=== PATIENT | female | born 1980 | race Caucasian/White ===

== ENCOUNTER 2025-02-14 18:50 | Emergency (ER) | payer MEDICAID, SELFPAY ==
--- OUTSIDE RECORDS SUMMARY | 2021-06-09 06:22 | XMS_ITS | Continuity of Care Document ---
Author Organization [facility] Address [address] [address] [place] [address] Phone Care Team Providers Care Ict Customer Support Officer Name Role Phone Kristina Lr MD Unavailable Unavailable Allergies, Adverse Reactions, Alerts Substance Reaction Status Criticality Sulfa (Sulfonamide Antibiotics) hives Active No Information Penicillins unknown Active No Information WARNIN allergy(ies) could not be collected because the type is not supported. Please contact the source practice for further details. Medications Medication Instructions Dosage Effective Dates (start - stop) Status Comments Fatmata 180 mg tablet take 1 tablet by o ral route every day - Active Procedures Procedure Date Offic/outpt E&m Estab Mod-hi 2 17 Routine Serum Collection Basic Metabolic Panel Bld Ct; Hg & Platelet Ct Autom 17 Gg; Iga, Igd, Igg, Igm, Ea Colonoscopy Flex; Dx (sep Pro) 14 Advance Directives Directive Yes / No Effective Date File Name No Information Encounters Encounter Description Practice Location Reason(s) For Visit Diagnoses Date Provider Providers Copied on Encounter [facility], [address] [address], [place], [id number], [place] tel:[phone] [facility] No Information 1 Be Acevedo. [address] [facility], [facility] [address], [place], [id number] , [place]. tel:[phone] Offic/outpt E&m Estab Mod-hi 2 [facility], [address] [address], [place], [id number], [place] tel:[phone] [facility] GI Symptoms or Concerns (chief complaint) Constipation, unspecified constipation typeLower abdominal painDietary counseling and surveillance Be Acevedo. [address] [facility], [facility] [address], [place], [place], [id number] , [place]. [phone] Referring Provider: Referral Self, USE FOR SELF REFERRALS. [facility], [address] [address], [place], [place], [id number], [place] tel:[phone] [facility] Internal hemorrhoidsRectal Bleed/BRBPRChange In Bowel HabitsInternal Hemorrhoids Be Acevedo. [address] [facility], [facility] [address], [place], [place], [id number] , [place]. [phone] Referring Provider: Jason Guerrero MD [place], [address] [place] [address] [place], [address]. tel:[phone] Family History Family Member Type Diagnosis Age At Onset Half sister (M) Problem (finding) Alive and well Mother Problem (finding) diverticulitis of colon Father Problem (finding) Alive and well Sister Problem (finding) Alive and well Payers Payer name Insurance type Covered libertarian ID Authoriza tion(s) No Information Social History Type Description Quantity Date Captured Comments Alcohol Use Details Unknown Caffeine Use Details Unknown Tobacco Use Status No Information Smoking Status No Information Sex Female Chief Complaint And Reason For Visit No Information Reason For Referral Reason For Referral No Information Plan Of Treatment Date Type Action Status Goal Lifestyle education regardin g diet completed Referral Ordered: CT Abdomen And Pelvis WITHOUT And WITH Contrast Appointment date/timeframe: -today ordered History Of Present Illness Encounter Date Complaint History Of Prese nt Illness GI Symptoms or Concerns The cherelle ent is a 36-year-old female who presents with constipation indicating she has not had a bowel movement for 11 to 12 days.She insists 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 She says it was ordered by Congress or by the President. She says it was placed without her consent. She says it was placed while she was in [place]. She has since moved back to [place]. When I do try to focus her on clinical symptoms, she reports that she has not had a bowel movement in 12 days. Previously, she reports daily bowel movements. She denies nausea or vomiting. She has lower abdominal pressure and discomfort. She is passing gas from below. She does have a history of intermittent rectal bleeding and underwent a colonoscopy with us in 2013 for evaluation of this. This revealed internal hemorrhoids and was otherwise normal. Recommendation at that time was made for repeat colonoscopy at age 48. Recommendation was additionally made for fiber with gradual increase Functional Status Date Functional Assessmen t No Information Instructions Date Instruction Additional Infor justus 1. cbc, bmp, tsh, ce liac2. CT a/p as per patient request3. try miralax 1-2 capfuls daily - if no relief proceed with bowel cleanse followed by miralax 1 capful daily4. establish care with pcp Related to Lower abdominal pain Constipation Bowel Cleanse (Adul t) Related to Lower abdominal pain Lifestyle education regarding di et Related to Dietary counseling and surveillance Hemorrhoids Related to Inter nal hemorrhoids High Fiber Diet Related to Inter nal hemorrhoids Assessments Type Assessment Date No Information Patient Care Teams Name Effective Dates (start - stop) Status Members No Information
--- OUTSIDE RECORDS SUMMARY | 2022-03-17 07:23 | XMS_ITS | Continuity of Care Document ---
Author Organization [facility] Address [address] [place], [place] Phone Care Team Providers Care Conveyor Belt Repairer Name Role Phone VENKATA BYNUM PA-C Unavailable Unavaila ble Allergies, Adverse Reactions, Alerts Substance Reaction Status Criticality No Known Allergies Active No Inform ation Medications Medication Instructions Dosage Effective Dates (start - stop) Status Comments doxycycline hyclate 100 mg capsule take 1 capsule by oral route every day 100 MG - Active Procedures Procedure Date ESTABLISHED PATIENT OFFICE VISIT - LEVEL 2 ESTABLISHED PATIENT OFFICE VISIT - LEVEL 2 NEW PATIENT OFFICE VISIT- LEVEL 3 NEW PATIENT OFFICE VISIT- LEVEL 3 REMOVAL OF NAIL PLATE Advance Directives Directive Yes / No Effective Date File Name No Information Encounters Encounter Description Practice Location Reason(s) For Visit Diagnoses Date Provider Providers Copied on Encounter [facility], [address], [place], [place], , [place] tel:[phone] [facility] No Information 2 MISA EDWIN. [address] [facility], [address], [place], [place], [id number], [place]. tel:[phone] ESTABLISHED PATIENT OFFICE VISIT - LEVEL 2 [facility], [address], [place], [place], , [place] tel:[phone] [facility] left foot pain (chief complaint) Paronychia of toe of left foot 2 5 No Information NEW PATIENT OFFICE VISIT- LEVEL 3 [facility], [address], [place], [place], , [place] tel:[phone] [facility] left foot pain (chief complaint) min Noble 5-201 5 No Information Family History Family Member Type Diagnosis Age At Onset No Information Payers Payer name Insurance type Covered republican ID Authoriza tiximena(s) No Information Social History Type Description Quantity Date Captured Comments Sex Female Smoking Status No Information Chief Complaint And Reason For Visit No Information Reason For Referral Reason For Referral No Information History Of Present Illness Encounter Date Complaint History Of Prese nt Illness left foot pain Ms Pro is a 35 year old female who complains of left foot pain. She presents with pain on the left side. The symptoms occur with mild activity. She rates her current pain as 2/10. The symptoms are aggravated by ascending stairs and daily activities. Sharri states that the symptoms are relieved by rest. She denies having any associated symptoms. Pertinent negatives include fever. left foot pain Ms Pro is a 35 year old female who complains of left foot pain. She presents with pain on the left side. She states that the symptoms have been acute non-traumatic and began 6 months ago. Currently the patient states that the symptoms are mild-moderate. She rates her current pain as 7/10. The symptoms are aggravated by daily activities. Sharri states that the symptoms are relieved by rest. In addition to left foot pain the patient is also experiencing difficulty going to sleep, difficulty with shoes and socks, limping, pain in bed, pain and nighttime awakening. Pertinent negatives include loss of motion. Functional Status Date Functional Assessmen t No Information Instructions Date Instruction Additional Infor mation No Information Assessments Type Assessment Date No Information Patient Care Teams Name Effective Dates (start - stop) Status Members No Information
[2025-02-14 19:02] VITALS: BP 113/78; PULSE 80; RESP 18; TEMP 37.2; O2SAT 98; BMI 36.6
--- NOTE | 2025-02-14 19:18 | ED.NURSE ---
Patient is refusing to answer safety questions in triage, she states she will address this with MD.
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
--- OUTSIDE RECORDS SUMMARY | 2025-02-14 20:18 | XMS_ITS | Clinical Summary ---
Author Organization [facility] Address [address] [place] [address] Care Team Providers Care Bone Char Kiln Tender Name Role Phone Kashif Henley MD Primary Care Provider + Linda Young MD Unavailable [phone] Allergies Active Allergy Reactions Criticality Noted Date Comments Alcohol Anaphylaxis High 08/08/2008 Pt is allergic to sulfates in alcohol such as wine Sodium Hypochlorite Solution Nausea Only High 10/25/2018 Bleach containing products/ 24 hour reaction/ gets lightheaded and nauseous Leaf Derived Cough Unknown 12/05/2014 Clozapine Blood Dyscrasia High 09/15/2023 Pt states that she had a blood reaction Fish Containing Products Anaphylaxis High 04/15/2015 Unlisted Allergen (Include Detail In Comments) Anaphylaxis High 08/08/2008 Seafood , pea and ETOH Peas Grains Fruits Vegetables Shellfish Containing Products Anaphylaxis High 08/08/2008 Sulfa (Sulfonamide Antibiotics) Hives Unknown 04/02/2013 Medications multivitamin (MVI) tablet Take 1 Tablet by mouth once daily. 09/27/2023 Active docusate (Colace) 100 mg capsuleIndicati ons:Constipatio n, acute Take 1 Capsule (100 mg) by mouth 2 times daily if needed for Constipation . 60 Capsule 2 11/03/2023 Active Active Problems Problem Noted Date Diagnosed Date Delusional disorder 04/16/2024 Schizophrenia, paranoid 08/19/2022 Overview (01/07/2025): With bizarre fixed delusions With bizarre fixed delusions Uterine fibroid 03/03/2016 Overview (09/27/2023): 03/02/16 - In the left uterine body, there is an intramural fibroid measuring 1.0 cm. Resolved Problems Problem Noted Date Diagnosed Date Resolved Date Delusions 01/18/2017 01/18/2017 Ocular migraine 07/01/2014 09/27/2023 Erythema nodosum 11/02/2011 04/16/2024 Chest pain, unspecified 01/04/200809/05 Pain in joint, forearm 01/04/200809/27 Allergic rhinitis, cause unspecified 01/30/2007 04/16/2024 Other malaise and fatigue 01/30/2007 Encounters Date Type Department Care Team Description 01/09/2025 2:30 PM CDT Ancillary Procedure [place] [address] [place] [address] 01/09/2025 Telephone [facility] [address] [facility] [address] [place] [address] Lenore Polanco CURLING MACHINE OPERATOR Results 01/09/2025 Travel 01/09/2025 Telephone [facility] [address] [place] [address] Lenore Polanco NP Results (Labs 01/07/25) 01/07/2025 2:20 PM CDT Office Visit [facility] [address] [place] [address] Lenore Polanco NP Concerns (Left side pain - felt like an organ burst, happened 5 nights ago/painful this morning); Health Maintenance Update (Reviewed Care Gaps/declined/) 01/07/2025 Travel 12/09/2024 Telephone [facility] [address] [facility] [address] [place] [address] Pcp, No Appointment Request 12/09/2024 Nurse Triage [facility] [address] [place] [address] Kashif Henley MD Hearing Problem 12/02/2024 2:15 PM CDT Office Visit [facility] [address] [place] [address] Mark Plunkett, OD Eye Exam (Prev comp exam ) 12/02/2024 Travel from Last 3 Months Immunizations Immunization Administration Dates Next Due Hepatitis A (Peds) 05/04/1997 Hepatitis A, Unspecified 03/27/1996 Hepatitis B, Unspecified 01/25/1994,08/24/1993,1 09/21/1992 MMR 07/22/1993 Oral Polio Vaccine 07/22/1993 Td (Age >=7 Years) 07/22/1993 Tdap 08/21/2014 Typhoid (injectable) 02/26/1999 Yellow Fever 02/26/1999 Family History * Patient is adopted Medical History Relation Name Comments Depression Father Psychiatric illness Father Schizoph augusta Other Mother TBI Relation Name Status Comments Father Mother Social History Tobacco Use Types Packs/Day Years Used Date Smoking Tobacco: Never Smokeless Tobacco: Never Tobacco Cessation:Counseling Given: No Comments:second hand smoke Alcohol Use Standard Drinks/Week Comments No 0 (1 standard drink = 0.6 oz pur e alcohol) allergy PHQ-2 Answer Date Recorded PHQ-2 TOTAL SCORE 0 07/01/2024 Social Connections Answer Date Recorded Do you often feel lonely or isolated from those around you? 0 09/27/2023 Financial Resource Strain Answer Date R ecorded Difficulty of Paying Living Expenses 3 09/27/2023 Difficulty of Paying Living Expenses Not on file 09/27/2023 Food Insecurity Answer Date Recorded Do you worry your food will run out before you are able to buy more? 1 09/27/2023 Transportation Needs Answer Date Record ed Does lack of transportation keep you from medica l appointments? 1 09/27/2023 Does lack of transportation keep you from work, meetings or getting things that you need? 1 09/27/2023 Housing Stability Answer Date Recorded What is your housing situation today? 1 09/27/2023 Interpersonal Safety Answer Date Record ed Are you being hit, kicked, p ushed or yelled at (see row info)? No 04/18/2024 Interpersonal Safety Abuse 12 - 18 Not on file 04/18/2024 Interpersonal Safety Ambulatory Vulnerability No t on file 04/18/2024 Utilities Answer Date Recorded Do you have trouble paying f or utilities (for example, heat, electricity, water, phone)? 1 09/27/2023 Comments No Sex and Gender Information Value Date Recorded Sex Assigned at Female 11/02/2023 2:06 PM RN LPN LVN Legal Sex Female 7:22 AM RN LPN LVN Gender Identity Female 11/02/2023 2:06 PM RN LPN LVN Sexual Orientation Straight 11/02/2023 2: 06 PM RN LPN LVN Obstetrics History Para Term AB IAB SAB Ectopic Multiple Livin g Live Births 0 0 0 0 0 0 0 0 0 0 Last Filed Vital Signs Vital Sign Reading Time Taken Comments Blood Pressure 125/72 04/18/2024 10:14 PM CDT Pulse 84 01/07/2025 2:49 PM CDT Temperature 37.4 C (99.4 F) 01/07/2025 2:49 PM CDT Respiratory Rate 18 04/18/2024 10:1 4 PM CDT Oxygen Saturation 99% 01/07/2025 2:4 9 PM CDT Inhaled Oxygen Concentration - - Weight 97.8 kg (215 lb 11.2 oz) 025 2:49 PM CDT with shoes Height 162.6 cm (5' 4) 04/18/2024 10:1 4 PM CDT Body Mass Index 37.02 04/18/2024 10:14 PM CDT Plan of Treatment Health Maintenance Due Date Last Done Comments Lipids for age 45-75 2023 Mammogram for age 45-75 2023 Pap test for age 21-65 01/03/2024 9, 01/02/2019, 02/11/2014, Additional history exists COVID-19 vaccine series ( season) 2024 08/24/2023, 09/09/2021, 02/12/2021, Additional history exists Tetanus booster 08/21/2024 08/21/2014, 04/2011 (Declined), 07/22/1993 BMI (ht and wt on same day) for age 18+ 09/27/2024 09/27/2023, 09/15/2023, 10/05/2018, Additional history exists Influenza Vaccine (Season Ended) 2025 Depression screening for age 12+ 07/01/2025 07/01/2024 Colonoscopy through age 75 09/08/2033 09/08/2023, Hepatitis B series for 19+ Completed 01/25, 08/24/1993, 07/22/1993 Tdap Completed 08/21/2014 HIV for age 15-65 Completed 01/07/2025, , 01/02/2019 Hepatitis C screening for age 18-79 Completed 01/07/2025, 01/02/2019 Pneumococcal series for age 6-49 Aged Out No longer eligible based on patient's age to complete this topic Procedures Procedure Name Priority Date/Time Associated Diagnosis Comments CT ABDOMEN PELVIS W [place] 01/09/2025 3 :27 PM CDT Abdominal pain, LLQ (left lower quadrant) GC CHLAMYDIA TRACH PROBE Routine 01/07/2025 3:50 PM CDT Screening examination for STD (sexually transmitted disease) TREPONEMA PALLIDUM Routine 01/07/2025 3: 38 PM CDT Screening examination for STD (sexually transmitted disease) ANTI HIV 1/2 Routine 01/07/2025 3:28 PM CDT Screening examination for STD (sexually transmitted disease) HBSAG (HBS) Routine 01/07/2025 3:28 PM CDT Screening examination for STD (sexually transmitted disease) ANTI HCV Routine 01/07/2025 3:28 PM CDT Screening examination for STD (sexually transmitted disease) [place] BLOOD COUNT COMPLETE AUTO&AUTO DIFRNTL WBC Routine 01/07/2025 3:28 PM CDT Abdominal pain, LLQ (left lower quadrant) Screening examination for STD (sexually transmitted disease) COMP METABOLIC PANEL Routine 01/07/2025 3:28 PM CDT Abdominal pain, LLQ (left lower quadrant) SCAN-COLONOSCOPY 09/08/2023 12:0 0 AM RN LPN LVN COLLECTION ANALYST THIN PREP PAP SCREEN IMAGED Routine 01/02/2019 8:45 AM CDT Screening for cervical cancer from Last 3 Months or Most Recently Relevant to Health Maintenance Results * CT ABDOMEN PELVIS W (01/09/2025 3:27 PM CDT) Anatomical Region Laterality Modality Abdomen, Pelvis, AORTA, LIVER, SPLEEN Computed Tomography 01/09/2025 3:27 PM CDT Impressions 01/09/2025 3:33 PM CDT 1. Low-density left ovarian/adnexal lesion measuring up to 3.2 cm, possible symptomatic ovarian lesion/cyst. Recommend pelvic ultrasound for further evaluation. Suggested follow-up: US Pelvis < 1 Month Narrative 01/09/2025 3:33 PM CDT For Patients: As a result of the Cures Act, medical imaging exams and procedure reports are released immediately into your electronic medical record. You may view this report before your referring provider. If you have questions, please contact your health care provider. EXAM: CT ABDOMEN PELVIS W LOCATION: [facility] DATE: 01/09/2025 INDICATION: Abdominal Pain, Llq (left Lower Quadrant) COMPARISON: CT 01/17/2017. TECHNIQUE: CT scan of the abdomen and pelvis was performed following injection of IV contrast. Multiplanar reformats were obtained. Dose reduction techniques were used. CONTRAST: Omnipaque 350 80ml FINDINGS: LOWER CHEST: Normal. HEPATOBILIARY: Normal. PANCREAS: Normal. SPLEEN: Normal. ADRENAL GLANDS: Normal. KIDNEYS/BLADDER: Normal. BOWEL: No obstruction or inflammatory change. LYMPH NODES: Normal. VASCULATURE: Normal. PELVIC ORGANS: Low-density left ovarian/adnexal lesion measures 3.2 x 2.7 cm (series 2, image 111). MUSCULOSKELETAL: Small fat-containing umbilical hernia. Procedure Note Delmar Gr MD - 01/09/2025 For Patients: As a result of the s Act, medical imagingexams and procedure reports are released immediately into your electronicmedical record. You may view this report before your referring provider.If you have questions, please contact your health care provider. EXAM: CT ABDOMEN PELVIS W LOCATION: [facility] DATE: 01/09/2025 INDICATION: Abdominal Pain, Llq (left Lower Quadrant) COMPARISON: CT 01/17/2017. TECHNIQUE: CT scan of the abdomen and pelvis was performed followinginjection of IV contrast. Multiplanar reformats were obtained. Dosereduction techniques were used. CONTRAST: Omnipaque 350 80ml FINDINGS: LOWER CHEST: Normal. HEPATOBILIARY: Normal. PANCREAS: Normal. SPLEEN: Normal. ADRENAL GLANDS: Normal. KIDNEYS/BLADDER: Normal. BOWEL: No obstruction or inflammatory change. LYMPH NODES: Normal. VASCULATURE: Normal. PELVIC ORGANS: Low-density left ovarian/adnexal lesion measures 3.2 x 2.7cm (series 2, image 111). MUSCULOSKELETAL: Small fat-containing umbilical hernia. IMPRESSION: 1. Low-density left ovarian/adnexal lesion measuring up to 3.2 cm,possible symptomatic ovarian lesion/cyst. Recommend pelvic ultrasound forfurther evaluation. Suggested follow-up: US Pelvis < 1 Month us Lenore Polanco NP CT Final Result * GC Chlamydia [[id number]] - Urine (01/07/2025 3:50 PM CDT) CHLAMYDIA PROBE Negative 12:22 AM CDT [facility] N GONORRHOEAE PROBE Negative 01/08/2025 12:22 AM CDT [facility] Other URINE SPECIMEN / Unknown Non-Blood / Unknown 01/07/2025 3:50 PM CDT 01/07/2025 3:51 PM CDT Lenore Polanco NP MICROBIOLOGY Final Result [facility] [address] [place] [address], * TREPONEMA PALLIDUM [16490.1] (01/07/2025 3:38 PM CDT) TREPONEMA PALLIDUM Non-Reacti ve Non-Reacti ve 01/07/2025 8:[address] [facility] Blood BLOOD SPECIMEN / Unknown [facility] / Unknown 01/07/2025 3:38 PM CDT 01/07/2025 4:04 PM CDT Lenore Polanco NP SEND OUTS Final Result [facility] [address] [place] [address], * HBSAG (HBS) [87912.2] (01/07/2025 3:28 PM CDT) HEPATITIS B SURFACE ANTIGEN NON-REACTI VE NON-REACTI VE [facility] Comment: For additional information, please refer to http://Inmoo/faq/NNZ699 (This link is being provided for informational/ educational purposes only.) Blood BLOOD SPECIMEN / Unknown 01/07/2025 3:28 PM CDT 01/07/2025 3:29 PM CDT Lenore Polanco CURLING MACHINE OPERATOR SEND OUTS Final Result Performing Organization Address City/[facility] Co de Phone Number [facility] [address] [place] [address], [employer] [facility] [address] [place] [address] * ANTI HCV [56705.2] (01/07/2025 3:28 PM CDT) HEPATITIS C ANTIBODY NON-REACTI VE NON-REACT CEASAR [facility] Comment: HCV antibody was non-reactive. There is no laboratory evidence of HCV infection. In most cases, no further action is required. However, if recent HCV exposure is suspected, a test for HCV RNA (test code 06255) is suggested. For additional information please refer to http://CHF Technologies.SpeechTrans/faq/ZJZ52s5 (This link is being provided for informational/ educational purposes only.) Blood BLOOD SPECIMEN / Unknown 01/07/2025 3:28 PM CDT 01/07/2025 3:29 PM CDT Lenorechandra Polanco CURLING MACHINE OPERATOR SEND OUTS Final Result Performing Organization Address [facility]/State/ZIP Co de Phone Number [email or web address] [facility] [address] [place] [address], [facility] [address] [place] [address] * ANTI HIV 1/2 [39397.0] (01/07/2025 3:28 PM CDT) [facility] HIV AG/AB, 4TH GEN NON-REACT CEASAR NON-REACT CEASAR [facility] Comment: HIV-1 antigen and HIV-1/HIV-2 antibodies were not detected. There is no laboratory evidence of HIV infection. PLEASE NOTE: This information has been disclosed to you from records whose confidentiality may be protected by state law. If your state requires such protection, then the state law prohibits you from making any further disclosure of the information without the specific written consent of the person to whom it pertains, or as otherwise permitted by law. A general authorization for the release of medical or other information is NOT sufficient for this purpose. For additional information please refer to http://education.Clarivoy.AxioMed Spine/faq/XUV131 (This link is being provided for informational/ educational purposes only.) The performance of this assay has not been clinically validated in patients less than 2 years old. Blood BLOOD SPECIMEN / Unknown 01/07/2025 3:28 PM CDT 01/07/2025 3:29 PM CDT Lenore Polanco CURLING MACHINE OPERATOR SEND OUTS Final Result Performing Organization Address [facility]/ZIP Co de Phone Number [email or web address] [facility] [address] [facility] [address], [facility] [address] [place] [address] * (ABNORMAL) CBC AND DIFFERENTIAL (01/07/2025 3:28 PM CDT) [facility] WHITE BLOOD CELL COUNT 10.3 3.8 - 10.8 Thousand/u L [facility] ([facility] RED BLOOD CELL COUNT 4.42 3.80 - 5.10 Million/uL [facility] (Ur HEMOGLOBIN 12.9 11.7 - 15.5 g/dL [facility] (Ur HEMATOCRIT 39.6 35.0 - 45.0 % [facility] (Ur MCV 89.6 80.0 - 100.0 fL [facility] ([facility] MCH 29.2 27.0 - 33.0 pg [facility] (Ur MCHC 32.6 32.0 - 36.0 g/dL [facility] (Ur Comment: For adults, a slight decrease in the calculated MCHC value (in the range of 30 to 32 g/dL) is most likely not clinically significant; however, it should be interpreted with caution in correlation with other red cell parameters and the patient's clinical condition. RDW 13.6 11.0 - 15.0 % [facility] (Ur PLATELET COUNT 338 140 - 400 Thousand/u L [facility] (Ur MPV 9.7 7.5 - 12.5 fL [facility] (Ur ABSOLUTE NEUTROPHILS 5,624 1,500 - 7,800 cells/uL [facility] (Ur ABSOLUTE LYMPHOCYTES 3,368 850 - 3,900 cells/uL [facility] (Ur ABSOLUTE MONOCYTES 989(H) 200 - 950 cells/uL [facility] (Ur ABSOLUTE EOSINOPHILS 278 15 - 500 cells/uL [facility] (Ur ABSOLUTE BASOPHILS 41 0 - 200 cells/uL [facility] (Ur NEUTROPHILS 54.6 % [facility] (Ur LYMPHOCYTES 32.7 % [facility] (Ur MONOCYTES 9.6 % [facility] (Ur EOSINOPHILS 2.7 % [facility] (Ur BASOPHILS 0.4 % [facility] (Ur Blood BLOOD SPECIMEN / Unknown 01/07/2025 3:28 PM CDT 01/07/2025 3:29 PM CDT Lenore Polanco NP HEMATOLOGY Final Result [facility] [address] [place] [address], [facility] (Ur [address] [place] [address] * (ABNORMAL) COMP METABOLIC PANEL (01/07/2025 3:28 PM CDT) [facility] GLUCOSE 102(H) 65 - 99 mg/dL [facility] Comment: Fasting reference interval For someone without known diabetes, a glucose value between 100 and 125 mg/dL is consistent with prediabetes and should be confirmed with a follow-up test. UREA NITROGEN (BUN) 13 7 - 25 mg/dL [facility] CREATININE 0.78 0.50 - 0.99 mg/dL [facility] EGFR 95 > OR = 60 mL/min/1. 73m2 [facility] BUN/CREATININE RATIO SEE NOTE: 6 (calc) [facility] Comment: Not Reported: BUN and Creatinine are within reference range. SODIUM 136 135 - 146 mmol/L [facility] POTASSIUM 4.3 3.5 - 5.3 mmol/L [facility] CHLORIDE 108 98 - 110 mmol/L [facility] CARBON DIOXIDE 21 20 - 32 mmol/L [facility] CALCIUM 9.0 8.6 - 10.2 mg/dL [facility] PROTEIN, TOTAL 7.4 6.1 - 8.1 g/dL [facility] ALBUMIN 4.0 3.6 - 5.1 g/dL [facility] GLOBULIN 3.4 1.9 - 3.7 g/dL (calc) [facility] ALBUMIN/GLOBULIN RATIO 1.2 1.0 - 2.5 (calc) [facility] BILIRUBIN, TOTAL 0.2 0.2 - 1.2 mg/dL [facility] ALKALINE PHOSPHATASE 72 31 - 125 U/L [facility] AST 12 10 - 35 U/L [facility] ALT 11 6 - 29 U/L [facility] Blood BLOOD SPECIMEN / Unknown 01/07/2025 3:28 PM CDT 01/07/2025 3:29 PM CDT us Lenore Polanco NP CHEMISTRY Final Result [email or web address] [facility] [address] [place] [address], [facility] [address] * SCAN-COLONOSCOPY (09/08/2023 12:00 AM RN LPN LVN) us Scanner OTHER Final Result * COLLECTION ANALYST THIN PREP PAP SCREEN IMAGED (01/02/2019 8:45 AM CDT) Case Report Gynecologic Cytology Report Case: [id number] Authorizing Provider: Nadia Martinez Collected: 01/02/2019 Margarita Irwin MD Ordering Location: [facility] Received: 01/02/2019 1123 Clinic First Screen: Allegra Zhang Specimen: COLLECTION ANALYST ThinPrep Vial Screening, Cervical 01/11/2019 12:[address] [facility]-C ENTRAL LABORATORY INTERPRETATION/ RESULT NEGATIVE FOR INTRAEPITHELIAL LESION OR MALIGNANCY (NIL) (none) 01/11/2019 12:44 PM CDT [facility] at 1244 CDT SPECIMEN ADEQUACY Satisfactory for evaluation No endocervical component seen 01/11/2019 12:44 PM CDT [facility] HPV REQUEST HPV and PAP 01/11/2019 12:44 PM CDT [facility] Date of LMP 12/30/2018 01/11/2019 12:44 PM CDT [facility] Last Pap Date elsewhere 01/11/2019 12:44 PM CDT [facility] Last Pap Result NIL 9 12:44 PM CDT [facility] Abnormal Pap or [place] Bx in last 5 years No 01/11/2019 12:44 PM CDT [facility] Menstrual Status Regular Periods 01/11/2019 12:44 PM CDT [facility] [place] Bx Done Today No 01/11/2019 12:44 PM CDT [facility] Additional Information None given 01/11/2019 12:44 PM CDT [facility] Automated Review Successful 01/11/2019 12:44 PM CDT [facility] Comment:Specimen processed s uccessfully by automated seed cleaner device, ThinPrep Imaging System, [employer] ANCILLARY TESTING COLLECTION ANALYST HPV Ordered, Please see separate report 01/11/2019 12:44 PM CDT [facility] Note The pap test is a screening technique, not a diagnostic procedure. It is used primarily to screen for squamous cancers and precursor lesions. Published studies have shown that it is subject to both false negative and false positive results. The pap test should not be used as the sole means to diagnose or exclude pre-malignant and malignant lesions. Cytology is screened and interpreted at [facility] - [address], [place] [address] and [facility] - [address]; [place] [address] [facility] - [address]; [place] [address] and [facility] [address]; [place] [address] 01/11/2019 12:44 PM CDT [facility]AL LABORAT[facility] Other (Cervical) Non-Blood / Unknown 01/02/2019 8:45 AM CDT 01/02/2019 11:23 AM CDT us Nadia Martinez MD PATHOLOGY/CYTOLOGY Final Result [facility]-CENTRAL LABORATORY [address] [place] [address], [place] from Last 3 Months or Most Recently Relevant to Health Maintenance Care Teams Bone Char Kiln Tender Relationship Specialty Start Date End Date Kashif Henley MD [address] [place] [address] PCP - General Internal Medicine 09/27/23 Linda Young MD [address] [place] [address] Provider Psychiatry 12/07/23
--- OUTSIDE RECORDS SUMMARY | 2025-02-14 20:18 | XMS_ITS | Clinical Summary ---
Author Organization [facility] Address [address] [place] [id number] Care Team Providers Care Tailor Apprentice Name Role Phone Provider, No Primary Primary Care Provider Unava ilable Allergies Active Allergy Reactions Criticality Noted Date Comments [place] Derived Cough Medium 12/05/2014 Shellfish Containing Products Anaphylaxis / Throat Swelling High 08/08/2008 Medications No known medications Social History Tobacco Use Types Packs/Day Years Used Date Smoking Tobacco: Never Assessed Intimate Partner Violence Answer Date R ecorded Are you in a relationship wh ere you are physically hurt, threatened and/or made to feel afraid? No 05/14/2024 Comments Unknown Sex and Gender Information Value Date Recorded Sex Assigned at Not on file Legal Sex Female 6:08 PM CDT Gender Identity Not on file Sexual Orientation Not on file Last Filed Vital Signs Vital Sign Reading Time Taken Comments Blood Pressure 107/80 05/14/2024 6:24 PM CDT Pulse 92 05/14/2024 6:24 PM CDT Temperature 37.1 C (98.7 F) 05/14/2024 6:24 PM CDT Respiratory Rate 18 05/14/2024 6:24 PM CDT Oxygen Saturation 98% 05/14/2024 6:24 PM CDT Inhaled Oxygen Concentration - - Weight 90.7 kg (200 lb) 05/14/2024 6:24 PM CDT Height - - Body Mass Index - - Plan of Treatment Health Maintenance Due Date Last Done Comments Hepatitis C Testing 1978 Depression Screening 1990 Hepatitis A Vaccines (2 of 2 - 2-dose series) 11/01/1997 05/04/1997, 03/27/1996 Lipids Standard [address] Colonography 2023 Fecal Immunochemical DNA Test (FIT-DNA) 2023 Fecal Immunochemical Test (FIT) 2023 Cervical Cancer Screening 01/03/2024 01/02/2019 HPV Testing 01/03/2024 01/02/2019 COVID-19 Vaccine ( - season) 2024 08/24/2023, 09/09/2021, 02/12/2021, Additional history exists DTaP/Tdap/Td Vaccines (3 - Td or Tdap) 08/21/2024 08/21/2014, 07/22/1993 Influenza Vaccine (Season Ended) 2025 Varicella Zoster Sequential (1 of 2) 2028 Colonoscopy 09/08/2033 09/08/2023 Colorectal Cancer Screening 09/08/2033 Respiratory Syncytial Virus (RSV) Vaccine (1 - 1-dose 75+ series) 2053 Hepatitis B Vaccines Completed 01/25/1994, 08/24/1993, 07/22/1993 HIV Screen Completed 05/14/2024 HIB Vaccines Aged Out No longer eligi ble based on patient's age to complete this topic HPV Vaccines Aged Out No longer eligi ble based on patient's age to complete this topic Meningococcal B Vaccines Aged Out No longer eligible based on patient's age to complete this topic Meningococcal Vaccines Aged Out No lo nger eligible based on patient's age to complete this topic Pneumococcal Vaccine (0-49 Years) Aged Out No longer eligible based on patient's age to complete this topic Procedures Procedure Name Priority Date/Time Associated Diagnosis Comments HIV-1 AND HIV-2 AG AND AB STAT 05/14/2024 7:34 PM CDT from Last 3 Months or Most Recently Relevant to Health Maintenance Results * HIV-1 AND HIV-2 AG AND AB (05/14/2024 7:34 PM CDT) HIV 1/2 Ab/Ag Nonreactive Nonreactive 9:00 PM CDT [facility] Blood VENOUS BLOOD / Unknown Venipuncture / Unknown 05/14/2024 7:34 PM CDT 05/14/2024 7:36 PM CDT us rTe Barraza PAC [facility] SEROLOGY MYRON CROWELL Final Result [facility] - [facility] [address] [place] [address], [place] [phone] from Last 3 Months or Most Recently Relevant to Health Maintenance Insurance [place] [id number] Care Teams Tailor Apprentice Relationship Specialty Start Date End Date Provider, No [place] . [place] [id number] PCP - General 05/14/24 Additional Source Comments PLEASE NOTE: Replies to this message will not be received.[facility] and [facility]
--- OUTSIDE RECORDS SUMMARY | 2025-02-14 20:18 | XMS_ITS | Referral Summary ---
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 Name Role Phone Provider, No Primary Primary Care Provider Unava ilable Allergies Active Allergy Reactions Criticality Noted Date Comments [place] Derived Cough Medium 12/05/2014 Shellfish Containing Products [...] Mass Index - - Plan of Treatment Not on file Procedures Procedure Name Priority Date/Time Associated Diagnosis Comments HIV-1 AND HIV-2 AG AND AB STAT 05/14/2024 7:34 PM CDT from Last 3 Months or Most Recently Relevant to Health Maintenance Results * HIV-1 AND HIV-2 AG AND AB (05/14/2024 7:34 PM CDT) HIV 1/2 Ab/Ag Nonreactive Nonreactive 9:00 PM CDT [facility] Blood VENOUS BLOOD / Unknown Venipuncture / Unknown 05/14/2024 7:34 PM CDT 05/14/2024 7:36 PM CDT us Tre Barraza PAC LAB SEROLOGY MYRON CROWELL Final Result [facility] [address] [place] [address], [place] [phone] from Last 3 Months or Most Recently Relevant to Health Maintenance Insurance [place]ID [place] [id number] Care Teams Door To Door Sales Representative Relationship Specialty Start Date End Date Provider, No Primary . [place] [id number] PCP - General 05/14/24 Additional Source Comments PLEASE NOTE: Replies to this message will not be received.[facility] and [facility]
== END 2025-02-14 20:20 | disposition home or self-care (01) ==
LOC: ED 20:16
PROVIDERS: Emergency Provider Family Medicine
DX: N83.202 Unspecified ovarian cyst, left side (principal); F20.9 Schizophrenia, unspecified
CPT/HCPCS: 99282; 99283; 99284